=== PATIENT | female | born 1970 | race African-American/Black ===

== ENCOUNTER 2019-11-15 06:55 | Emergency (ER) | payer SELFPAY ==
[~2019-11-15] VITALS: Ht 167.6 cm; Wt 93.0 kg
[~2019-11-15 06:55] MED LIST: ALBUTEROL SULF8.5 GM INH; AZITHROMYCIN250 MG ORAL; CIPRO500 MG PO; COLACE100 MG ORAL; FERROUS SULFAT325 MG ORAL; IBUPROFEN800 MG ORAL; MOTRIN600 MG ORAL; NITROFURANTOIN100 M2 ORAL; NKM; NORCO 5-325 TA1 EACH PO; PHENAZOPYRIDIN100 MG ORAL; ROBITUSSIN DM5 ML ORAL
[2019-11-15 07:32] VITALS: BP 190/120
--- NOTE | 2019-11-15 07:36 | Emergency Room Report ---
History of Present Illness General Chief Complaint: Female Urogenital Problems Source: Patient Present Illness HPI Disclaimer: Please note that this report is being documented using DRAGON technology. This can lead to erroneous entry secondary to incorrect interpretation by the dictating instrument. HPI: 49-year-old female presents for evaluation of dysuria. Symptoms present for the past several days. She reports urinary urgency, frequency, burning sensation and a slight red tinge to the urine. Also reports some mild right- sided back pain while emptying her bladder. Pain is also exacerbated by movements. Was at its maximum few days ago now improving. Denies fever, chills, vomiting, diarrhea. Prior history of UTI treated with antibiotics. 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 EOMI. Resp: Normal work of breathing Abdomen: Soft, nondistended. Minimal tenderness palpation in the suprapubic region. Mild right lower back tenderness tenderness. Skin: Intact. No abrasions, laceration or rash over the exposed skin MSK: Normal tone and bulk. Moving all extremities. No obvious deformity. Neuro: Awake and alert. Mentating appropriately Spine: No tenderness, step-off or deformity in the thoracic or lumbosacral spine. No significant paraspinal tenderness. Medical Decision Making Diagnostic Impression: Primary Impression: Flank pain ER Course 49-year-old female presenting for evaluation of dysuria. Differential includes is not limited to urinary tract infection, pyelonephritis, nephrolithiasis, musculoskeletal pain to name a few. Urinalysis does not show significant bacteria or inflammatory markers. 2+ blood noted but no red cells. CBC and electrolyte panel within normal limits. Kidney function at baseline. CT scan without contrast was obtained to evaluate for kidney stone. No findings. Pain may be musculoskeletal in nature. Will treat for lumbosacral strain. Patient will follow-up with PMD and return with new or worsening symptoms. She understands and agrees with this treatment plan. Laboratory Tests Test 11/15/19 07:35 11/15/19 08:00 Urine Color Pale yellow Urine Appearance Clear Urine pH 6.5 (4.5-8.0) Urine Specific [place] 1.005 (1.005-1.035) Urine Protein Negative (NEGATIVE) Urine Glucose (UA) Negative (NEGATIVE) Urine Ketones Negative (NEGATIVE) Urine Blood 2+ (NEGATIVE) H Urine Nitrite Negative (NEGATIVE) Urine Bilirubin Negative (NEGATIVE) Urine Urobilinogen Normal MG/DL (0.0-1.0) Urine Leukocyte Esterase Negative (NEGATIVE) Urine RBC 0-2 /HPF (0 - 2) Urine WBC 0 /HPF (0 - 2) Urine Squamous Epithelial Cells Occasional /LPF Urine Bacteria None /HPF (NONE) Urine HCG, Qualitative Negative (NEGATIVE) White Blood Count 4.6 K/UL (4.8-10.8) L Red Blood Count 4.55 M/UL (4.20-5.40) Hemoglobin 12.0 G/DL (12.0-16.0) Hematocrit 39.4 % (37.0-47.0) Mean Corpuscular Volume 87 FL (80-99) Mean Corpuscular Hemoglobin 26.5 PG (27.0-31.0) L Mean Corpuscular Hemoglobin Concent 30.6 G/DL (32.0-36.0) L Red Cell Distribution Width 16.3 % (11.6-14.8) H Platelet Count 238 K/UL (150-450) Mean Platelet Volume 11.5 FL (6.5-10.1) H Neutrophils (%) (Auto) 55.3 % (45.0-75.0) Lymphocytes (%) (Auto) 30.6 % (20.0-45.0) Monocytes (%) (Auto) 8.3 % (1.0-10.0) Eosinophils (%) (Auto) 3.7 % (0.0-3.0) H Basophils (%) (Auto) 2.2 % (0.0-2.0) H Sodium Level 141 MMOL/L (136-145) Potassium Level 3.7 MMOL/L (3.5-5.1) Chloride Level 105 MMOL/L (98-107) Carbon Dioxide Level 27 MMOL/L (21-32) Anion Gap 9 mmol/L (5-15) Blood Urea Nitrogen 13 mg/dL (7-18) Creatinine 0.9 MG/DL (0.55-1.30) Estimated Glomerular Filtration Rate > 60 mL/min (>60) Glucose Level 95 MG/DL (74-106) Calcium Level 8.6 MG/DL (8.5-10.1) CT/MRI/US Diagnostic Results CT/MRI/US Diagnostic Results : Impression IMPRESSION: NO SIGN OF ACUTE DISEASE IN THE ABDOMEN AND PELVIS. INCREASED STOOL LUCENCIES IN THE COLON. SMALL FATTY UMBILICAL HERNIA. Dictated By: Devin Chavez MD Electronically Signed By:Devin Chavez MD Signed Date/Time11/15/19 0936 CC: Ryne Ascencio [id number] 0 Last Vital Signs Date Time Temp Pulse Resp B/P (MAP) Pulse Ox O2 Delivery O2 Flow Rate FiO2 11/15/19 07:18 98.2 70 18 190/120 (143) 99 Room Air Disposition: HOME, SELF-CARE Condition: Stable Scripts Methocarbamol* (ROBAXIN-750*) 750 Mg Tablet 750 MG PO TID, #21 TAB 0 Refills Prov: Ryne Ascencio MD 11/15/19 Ibuprofen* (MOTRIN*) 600 Mg Tablet 600 MG ORAL Q6H PRN for For Pain, #30 TAB 0 Refills Prov: Ryne Ascencio MD 11/15/19 Lidocaine Patch* (Lidoderm Patch*) 1 Each Adh..patch 1 PATCH TOPIC DAILY, #7 PATCH 0 Refills Patch(es) may remain in place for up to 12 hours in any 24-hour period. Prov: Ryne Ascencio MD 11/15/19 Phenazopyridine Hcl* (PYRIDIUM*) 200 Mg Tablet 200 MG ORAL THREE TIMES A DAY, #14 TAB 0 Refills Prov: Ryne Ascencio MD 11/15/19 Referrals: NOT CHOSEN [facility]/,REFERRING (PCP) Ryne Ascencio MD Nov 15, 2019 07:35
[2019-11-15 07:48] LABS: APPEARANCE,URINE CLEAR; BILIRUBIN, URINE NEGATIVE (NEGATIVE); COLOR,URINE PALE YELLOW; GLUCOSE, URINE (UA) NEGATIVE (NEGATIVE); KETONES,URINE NEGATIVE (NEGATIVE); LEUKOCYTE ESTERASE ,URINE NEGATIVE (NEGATIVE); NITRITE,URINE NEGATIVE (NEGATIVE); PH,URINE 6.5 (4.5-8.0); PROTEIN,URINE NEGATIVE (NEGATIVE); UROBILINOGEN,URINE NORMAL MG/DL (0.0-1.0)
[2019-11-15 08:39] LABS: BASOPHILS % (AUTO) 2.2 % (0.0-2.0); EOSINOPHILS % (AUTO) 3.7 % (0.0-3.0); HEMATOCRIT 39.4 % (37.0-47.0); LYMPHOCYTES % (AUTO) 30.6 % (20.0-45.0); MEAN CORPUSCULAR VOLUME 87 FL (80-99); MONOCYTES % (AUTO) 8.3 % (1.0-10.0); NEUTROPHILS % (AUTO) 55.3 % (45.0-75.0); PLATELET COUNT 238 K/UL (150-450); RED BLOOD COUNT 4.55 M/UL (4.20-5.40); RED CELL DISTRIBUTION WIDTH 16.3 % (11.6-14.8); WHITE BLOOD COUNT 4.6 K/UL (4.8-10.8)
[2019-11-15 08:53] LABS: ANION GAP 9 mmol/L (5-15); BLOOD UREA NITROGEN 13 mg/dL (7-18); CALCIUM 8.6 MG/DL (8.5-10.1); CARBON DIOXIDE 27 MMOL/L (21-32); CHLORIDE 105 MMOL/L (98-107); CREATININE 0.9 MG/DL (0.55-1.30); POTASSIUM 3.7 MMOL/L (3.5-5.1); SODIUM 141 MMOL/L (136-145)
--- NOTE | 2019-11-15 09:41 | Diagnostic Imaging Report ---
EXAM: CT CT Abdomen Pelvis WO Contrast INDICATION: Dysuria. Abdominal discomfort. COMPARISON: None TECHNIQUE: Axial images were obtained through the abdomen pelvis without intravenous contrast. Sagittal and coronal reformats are generated. All CT scans at this facility are performed using dose modulation techniques as appropriate to a performed exam including the following: automated exposure control with adjustment of the mA and/or kV according to patient size. RADIATION DOSE: CTDIvol: 11.2 mGy DLP: 563.3 mGy-cm Dose information generated by the CT scanner is available in PACS. FINDINGS: The lung bases are clear. The liver and spleen are homogeneous. Gallbladder is without sludge or stone and there is no wall thickening. The pancreas is unremarkable. Adrenals are normal in morphology. The kidneys are normal in size, shape and axis. Small bowel loops are nondistended. Increased stool lucencies noted in the colon. The appendix is normal. There is no free fluid or free air. No pathologic adenopathy demonstrated. Urinary bladder appears unremarkable. Uterus is midline. No adnexal mass noted. There are multiple phleboliths in the pelvis. A small fatty umbilical hernia noted. IMPRESSION: NO SIGN OF ACUTE DISEASE IN THE ABDOMEN AND PELVIS. INCREASED STOOL LUCENCIES IN THE COLON. SMALL FATTY UMBILICAL HERNIA.
[2019-11-15] MEDS ORDERED: PHENAZOPYRIDIN200 MG ORAL (10:03)
[2019-11-15] MEDS ORDERED: LIDODERM700 M1 TOPIC (10:03)
[2019-11-15] MEDS ORDERED: IBUPROFEN600 M1 ORAL (10:03)
[2019-11-15] MEDS ORDERED: ROBAXIN-750750 MG PO (10:03)
[2019-11-15 10:05] VITALS: BP 165/99
[2019-11-15 10:10] VITALS: BP 165/99
== END 2019-11-15 10:20 | disposition home or self-care (01) ==
LOC: EMR 07:21
DX: R10.9 Unspecified abdominal pain (principal); I10 Essential (primary) hypertension; Z88.0 Allergy status to penicillin
CPT/HCPCS: 36415; 74176; 80048; 81003; 81025; 85025; 99284